=== PATIENT | female | born 1950 | race Hispanic/Latino ===

== ENCOUNTER 2017-07-30 23:13 | Emergency (ER) | payer MEDICARE, OTHER ==
[~2017-07-30] VITALS: Ht 157.5 cm; Wt 67.6 kg
[~2017-07-30 23:13] MED LIST: AMLODIPINE BESY10 MG PO; DIOVAN HCT 3201 EACH PO; HYDROCHLOROTHIA25 MG PO; LANSOPRAZOLE15 MG PO; LEVOFLOXACIN500 MG PO; LEVOTHYROXINE88 MCG PO; METHYLPREDNISOLO4 M1 PO; NORVASC10 MG; PRAVASTATIN SOD40 MG PO; PREVACID15 MG PO; SIMVASTATIN10 MG; TESSALON PERLE100 MG PO; ZITHROMAX500 MG PO
--- OUTSIDE RECORDS SUMMARY | 2017-07-30 23:15 | XMS REPORT ---
[facility] Address Unknown Phone Unavailable Care Team Providers Care Vice President Of Development Name Role Phone DEISI FRASER Unavailable Unavailable Problems This patient has no known problems. Allergies, Adverse Reactions, Alerts This patient has no known allergies or adverse reactions. Medications This patient has no known medications. Results Test Description Test Time Test Comments Text Results Atomic Results Result Comments SP LUMBAR, COMPLETE MIN 4VW [facility] [address] [address] Patient Name: DENNYS AMADOR MR #: [id number] : 1950 Age/Sex: 66/F Req #: [id number] [facility] Physician: Ordered by: EVELIO CASTILLO, DEISI Stallworth MD Report #: [id number] Location: [facility] Room/Bed: ____ Procedure: [id number] DX/SP LUMBAR, COMPLETE MIN 4VW Exam Date: Exam Time: 1630 REPORT STATUS: Signed PROCEDURE: L-SPINE COMPLETE, including bilateral obliques COMPARISON: None. INDICATIONS: LOWER BACK PAIN FINDINGS: The lumbar spine is in anatomic alignment without evidence of fracture, spondylolisthesis, or spondylolysis. Vertebral body heights are well-preserved. Mild multilevel disc space narrowing. Mild multilevel facet arthrosis. The paraspinal soft tissues are normal. Mild degenerative changes of both SI joints. CONCLUSION: Mild degenerative changes in the lumbar spine. Dictated by : Steven Krishna M.D. on 02/20/2017 at 17:03 Electronically approved by: Steven Krishna M.D. on 02/20/2017 at 17:03 Dictated By: STEVEN KRISHNA MD 02 Transcribed By: MEDARDO on 02/20/171702 COPY TO: DEISI FRASER
[2017-07-30] MEDS ORDERED: LOSARTAN POTASS25 MG (23:28)
--- NOTE | 2017-07-31 00:13 | Diagnostic Imaging Report ---
EXAMINATION: Head CT without contrast. HISTORY:Headache, high blood pressure. COMPARISON:None. TECHNIQUE: Multidetector axial images were obtained from the foramen magnum to the vertex without contrast. The images were reconstructed using brain and bone algorithms. Thin section brain images were reformatted into coronal and sagittal planes. Intravenous contrast: None IMAGE QUALITY: Acceptable. FINDINGS: Skull/scalp: No lytic or blastic. lesions. No surgical changes. Parenchyma: Nonspecific bilateral frontoparietal patchy white matter hypodensity are likely related to small vessel ischemic changes. No acute hemorrhage, mass or acute major vascular territorial infarct. Arteries: No density suggestive of thrombosis. Dural sinuses: No abnormal density suggestive of thrombosis. Ventricles: No hydrocephalus or displacement. Extra-axial spaces: No abnormal density. Brain volume: Normal for age. Craniocervical junction: No mass, Chiari malformation, or basilar invagination. Sella: Partial empty sella. Paranasal/mastoid sinuses: Imaged portions unremarkable. IMPRESSION: No acute intracranial abnormality. Mild supratentorial white matter microvascular ischemic changes. Mild generalized cerebral volume loss. Signed by: Dr. Alicia Poe M.D. on 07/31/2017 12:09 AM
[2017-07-31 00:26] LABS: BASOPHILS % 0.7 % (0.0-1.0); BILIRUBIN,URINE NEGATIVE (NEGATIVE); EOSINOPHILS # (AUTO) 0.1 (0.0-0.4); EOSINOPHILS % 1.9 % (0.0-6.0); HEMATOCRIT 35.6 % (34.2-44.1); HEMOGLOBIN 12.1 g/dL (12.0-16.0); KETONES,URINE NEGATIVE (NEGATIVE); LEUKOCYTE ESTERASE ,URINE NEGATIVE (NEGATIVE); LYMPHOCYTES # (AUTO) 2.4 (1.0-3.2); LYMPHOCYTES % 40.2 % (18.0-39.1); MEAN CORPUSCULAR HEMOGLOBIN 28.3 pg (28-32); MEAN CORPUSCULAR VOLUME 83.4 fL (81-99); MONOCYTES # (AUTO) 0.4 (0.2-0.8); MONOCYTES % 6.9 % (4.4-11.3); NITRITE,URINE NEGATIVE (NEGATIVE); PLATELET COUNT 299 x10e3/uL (140-360); PROTEIN,URINE DIPSTICK NEGATIVE (NEGATIVE); RED BLOOD COUNT 4.27 x10e6/uL (3.6-5.1); RED CELL DISTRIBUTION WIDTH 12.9 % (11.7-14.4); URINE UROBILINOGEN 0.2 mg/dL (0.2 - 1)
[2017-07-31 00:27] LABS: CLARITY,URINE CLEAR (CLEAR); COLOR,URINE YELLOW (YELLOW)
[2017-07-31 00:36] LABS: BACTERIA,URINE FEW /HPF; EPITHELIAL CELLS,URINE RARE /LPF; RBC,URINE 0-5 /HPF (0-5); WBC,URINE (MAN) 0-5 /HPF (0-5)
[2017-07-31 00:45] LABS: ALANINE AMINOTRANSFERASE 15 IU/L (0-55); ALBUMIN 4.3 g/dL (3.5-5.0); ALBUMIN/GLOBULIN RATIO 1.2 (0.8-2.0); ALKALINE PHOSPHATASE 56 IU/L (40-150); ANION GAP 15.7 mmol/L (8-16); BLOOD UREA NITROGEN 14 mg/dL (7-26); BUN/CREATININE RATIO 13 (6-25); CALCIUM 9.5 mg/dL (8.4-10.2); CARBON DIOXIDE 28 mmol/L (22-29); CHLORIDE 91 mmol/L (98-107); CREATINE KINASE 180 IU/L (29-168); CREATININE, SERUM 1.06 mg/dL (0.57-1.11); EST GLOMERULAR FILTRATION RATE 52 ML/MIN (60-); GLUCOSE 142 mg/dL (74-118); SODIUM 132 mmol/L (136-145)
--- NOTE | 2017-07-31 00:48 | Diagnostic Imaging Report ---
EXAMINATION: CHEST SINGLE (PORTABLE) INDICATION: Shortness of breath. COMPARISON: None FINDINGS: TUBES and LINES: None. LUNGS: Lungs are well inflated. Lungs are clear. There is no evidence of pneumonia or pulmonary edema. PLEURA: No pleural effusion or pneumothorax. HEART AND MEDIASTINUM: The cardiomediastinal silhouette is unremarkable. BONES AND SOFT TISSUES: No acute osseous lesion. Soft tissues are unremarkable. UPPER ABDOMEN: No free air under the diaphragm. IMPRESSION: No acute thoracic abnormality. Signed by: Dr. Grant Bryant M.D. on 07/31/2017 12:45 AM
[2017-07-31 00:51] LABS: POTASSIUM 2.7 mmol/L (3.5-5.1)
[2017-07-31] MEDS ORDERED: POTASSIUM CHLORIDE 20 MEQ TAB CR PO STA (00:51)
[2017-07-31] MEDS ORDERED: KCL 20MEQ/.9 SOD CHL 1,000 ML IV ONE (01:00)
[2017-07-31 01:16] LABS: FREE THYROXINE INDEX 2.4423 (1.4-3.8)
[2017-07-31 02:52] VITALS: BP 109/70
== END 2017-07-31 03:06 | disposition home or self-care (01) ==
LOC: ER 23:13
DX: R06.09 Other forms of dyspnea (principal); E87.6 Hypokalemia; R53.83 Other fatigue
CPT/HCPCS: 36415; 70450; 71045; 80053; 81001; 82550; 82553; 84436; 84443; 84479; 84484; 85025; 85379; 93005; 99284

== ENCOUNTER → 2018-12-03 | Day surgery (SDC) | payer MEDICARE, OTHER ==
[2018-12-02 16:24] LABS: BASOPHILS % 0.5 % (0.0-1.0); EOSINOPHILS # (AUTO) 0.1 (0.0-0.4); EOSINOPHILS % 2.6 % (0.0-6.0); HEMATOCRIT 36.6 % (34.2-44.1); HEMOGLOBIN 11.8 g/dL (12.0-16.0); LYMPHOCYTES # (AUTO) 1.4 (1.0-3.2); LYMPHOCYTES % 32.5 % (18.0-39.1); MEAN CORPUSCULAR HGB CONC 32.2 g/dL (31-35); MEAN CORPUSCULAR VOLUME 86.9 fL (81-99); MONOCYTES # (AUTO) 0.3 (0.2-0.8); NEUTROPHILS # (AUTO) 2.4 (2.1-6.9); NEUTROPHILS % 56.9 % (38.7-80.0); PLATELET COUNT 283 x10e3/uL (140-360); RED BLOOD COUNT 4.21 x10e6/uL (3.6-5.1); RED CELL DISTRIBUTION WIDTH 13.6 % (11.7-14.4)
[~2018-12-03] MED LIST changes: +FENTANYL CITRATE/PF 100MCG/2 ML INJ ONE; +HYOSCYAMINE 0.125 MG TAB ONE; +LOSARTAN POTASS25 MG; +MIDAZOLAM HCL 2 MG/2 ML VIAL ONE; +TRIAMTERENE-HCTZ1 EA PO
[2018-12-03 18:55] VITALS: BP 111/68
--- NOTE | 2018-12-04 01:21 | Operative Report ---
DATE OF PROCEDURE: 12/03/2018 SURGEON: Moose Cramer MD PROCEDURE: EGD with biopsies and esophageal dilatation and a colonoscopy with polypectomy. INDICATIONS FOR EGD: Dysphagia to solids, heartburn. INDICATIONS FOR COLONOSCOPY: Surveillance colonoscopy, personal history of colon polyps. MEDICATIONS: The patient was done under MAC, please see anesthesiologist's note. PROCEDURE IN DETAIL: With the patient in left lateral decubitus position, a flexible fiberoptic Olympus gastroscope was introduced into the esophagus under direct visualization without any difficulty. There was some patchy erythema noted in distal esophagus. The GE junction was nodular and friable and that was biopsied. The esophagus was then dilated to size 50-[place] Ch[place]olm. The scope was then advanced with ease into the stomach. Mucosa overlying the antrum and the body revealed some patchy erythema and [id number] edema. Biopsies were obtained, sent to stain for H. pylori. Several hyperplastic-appearing polyps were noted in the body of the stomach, some were partially excised with cold biopsy forceps. Pylorus appeared to be of normal contour and shape, was intubated with ease and the scope was advanced all the way to the second portion of the duodenum. The scope was then withdrawn slowly and mucosa overlying in the second portion as well as the duodenal bulb and repeat biopsies were obtained from the second portion and duodenal bulb. The scope was then withdrawn back into the stomach and retroflexed mucosa overlying the fundus and cardia appeared to be within normal limits. The scope was then straightened out, it was subsequently withdrawn, patient tolerated procedure well. IMPRESSION: 1. Distal esophagitis. 2. GE junction nodular, friable, biopsied, dilated to size 50-[place] Ch[place]m. 3. Gastritis, biopsied, biopsies sent to stain for H. pylori. 4. Gastric polyps, body, some partially excised with cold biopsy forceps. 5. Rule out sprue. PLAN: Follow up histology. Initiate Dexilant 60 mg one p.o. q.a.m. a.c. as well as Carafate 1 g p.o. a.c. t.i.d. at bedtime. The patient was then turned around after adequate lubrication of the anal canal, flexible fiberoptic Olympus colonoscope was inserted into the rectum with ease and advanced all the way to the cecum. It was then withdrawn slowly, mucosa overlying the cecum and ascending colon appeared to be within normal limits. One polyp was removed per cold snare from the transverse colon, the rest of the transverse appeared to be within normal limits. Some diverticular disease was noted to involve the distal descending and the sigmoid colon. Three polyps were snared. Two polyps were hot biopsied from the rectum. The scope was then retroflexed into the distal rectum. Small internal hemorrhoids were noted none of which was actively bleeding. The scope was then straightened out, it was subsequently withdrawn. Patient tolerated procedure well. IMPRESSION: 1. Transverse colon polyp snared. 2. Diverticulosis. 3. Rectal polyps x5, three snared and two hot biopsied. 4. Internal hemorrhoids, none actively bleeding. PLAN: 1. Followup histology. Initiate high-fiber, low-fat diet. Initiate high-fiber supplement. The patient might benefit from a followup colonoscopy in 5 years. MD JL Rowe/ABBY /[id number] cc: Gerhard Manning
== END | disposition home or self-care (01) ==
LOC: OR 12:15
PROVIDERS: ATTEND Internal Medicine Gastroenterology
DX: K29.70 Gastritis, unspecified, without bleeding (principal); D12.3 Benign neoplasm of transverse colon; K62.1 Rectal polyp; K31.7 Polyp of stomach and duodenum; K29.80 Duodenitis without bleeding; K22.8 Other specified diseases of esophagus; K20.9 Esophagitis, unspecified; K59.00 Constipation, unspecified; K57.30 Diverticulosis of large intestine without perforation or abscess without bleeding; K64.8 Other hemorrhoids; I10 Essential (primary) hypertension; E03.9 Hypothyroidism, unspecified; E78.00 Pure hypercholesterolemia, unspecified; Z91.041 Radiographic dye allergy status; Z01.810 Encounter for preprocedural cardiovascular examination; Z01.812 Encounter for preprocedural laboratory examination; Z68.27 Body mass index [BMI] 27.0-27.9, adult; Z80.0 Family history of malignant neoplasm of digestive organs
CPT/HCPCS: 36415; 43239; 43450; 45384; 45385; 85025; 88305; 88312; 93005; J2250; 45380; J3010

== ENCOUNTER → 2019-03-04 | Outpatient (CLI) | payer MEDICARE, OTHER ==
[~2019-03-04] MED LIST changes: -FENTANYL CITRATE/PF 100MCG/2 ML INJ ONE; -HYOSCYAMINE 0.125 MG TAB ONE; -MIDAZOLAM HCL 2 MG/2 ML VIAL ONE
--- NOTE | 2019-03-05 10:28 | Diagnostic Imaging Report ---
History: Low back pain with sciatica, left leg pain Comparison studies: None Technique: Sagittal and axial T2 , sagittal T1 and IR, axial spin density oblique, coronal T2. Intravenous contrast: None Findings: Number of lumbar vertebral bodies: 5. Alignment: Convex left lumbar curvature centered at L2-L3. Minimal grade 1 retrolisthesis of L3 on L4. Soft tissues: No T2 hyperintense inflammatory changes. Paraspinal muscles: Mild symmetric fatty-replaced atrophy. Lower thoracic cord: Normal in signal and morphology. Tip of the conus terminates at the superior T1 level. Cauda equina: Focal crowding of the cauda equina nerve roots at L3-L4 due to severe degenerative canal stenosis as described below. Vertebrae: No compression fractures, infection or neoplasm. Degenerative changes: L1-L2: Mildly degenerated disc with small right central disc protrusion without canal stenosis or foraminal stenosis. L2-L3: Mildly degenerated disc with small annular fissure. Patent canal and foramina. L3-L4: Mildly degenerated disc. Disc bulge with superimposed slightly inferior migrated 13 mm x 10 mm x 13 mm (SI x AP x TV) central disc extrusion, mildly thickened ligamentum flavum result in severe canal stenosis, narrowing of the subarticular recesses with impingement on the L4 subarticular nerve roots. Patent foramina. L4-L5: Mildly degenerated disc symmetric disc bulge, thickened ligamentum flavum and mild facet arthrosis without significant canal or foraminal stenosis. L5-S1: Mildly degenerated disc with small annular fissure.. Symmetric disc bulge, thickened ligamentum flavum and mild facet arthrosis without canal or foraminal stenosis. Additional findings: Multiple bilateral renal cysts with additional subcentimeter T2 hyperintense renal lesions which may be cysts but are otherwise too small to characterize. Largest cyst in the superior pole the left kidney measures 2.0 cm. Largest cyst in the right kidney measures 1.4 cm in the interpolar region. IMPRESSION: 1. Severe canal stenosis and impingement on the L4 subarticular nerve roots at L3-L4 due to a disc bulge and large central disc extrusion extrusion. 2. Additional mild multilevel degenerative changes as described. Signed by: Dr. Sanford Soto M.D. on 03/05/2019 10:24 AM
== END ==
LOC: MRI 13:46
PROVIDERS: ATTEND Family Medicine
DX: M54.42 Lumbago with sciatica, left side (principal)
CPT/HCPCS: 72148

== ENCOUNTER 2019-04-12 16:34 | Emergency (ER) | payer MEDICARE, OTHER ==
[~2019-04-12] VITALS: Ht 157.5 cm; Wt 67.6 kg
[2019-04-12 17:41] LABS: BASOPHILS % 0.5 % (0.0-1.0); EOSINOPHILS # (AUTO) 0.1 (0.0-0.4); EOSINOPHILS % 1.9 % (0.0-6.0); HEMATOCRIT 33.9 % (34.2-44.1); HEMOGLOBIN 11.1 g/dL (12.0-16.0); LYMPHOCYTES # (AUTO) 1.3 (1.0-3.2); MEAN CORPUSCULAR HEMOGLOBIN 28.1 pg (28-32); MEAN CORPUSCULAR HGB CONC 32.7 g/dL (31-35); MEAN CORPUSCULAR VOLUME 85.8 fL (81-99); MONOCYTES # (AUTO) 0.4 (0.2-0.8); NEUTROPHILS % 68.3 % (38.7-80.0); PLATELET COUNT 265 x10e3/uL (140-360); RED BLOOD COUNT 3.95 x10e6/uL (3.6-5.1); RED CELL DISTRIBUTION WIDTH 14.1 % (11.7-14.4)
[2019-04-12 17:50] LABS: INR 0.98; PROTHROMBIN TIME 13.5 seconds (11.9-14.5)
[2019-04-12 17:51] LABS: PARTIAL THROMBOPLASTIN TIME 31.6 seconds (23.8-35.5)
[2019-04-12 17:58] LABS: ALANINE AMINOTRANSFERASE 89 IU/L (0-55); ALBUMIN 4.1 g/dL (3.5-5.0); ALBUMIN/GLOBULIN RATIO 1.3 (0.8-2.0); ALKALINE PHOSPHATASE 62 IU/L (40-150); ANION GAP 12.8 mmol/L (8-16); BLOOD UREA NITROGEN 10 mg/dL (7-26); BUN/CREATININE RATIO 11 (6-25); CALCIUM 9.4 mg/dL (8.4-10.2); CARBON DIOXIDE 24 mmol/L (22-29); CHLORIDE 104 mmol/L (98-107); CREATINE KINASE 123 IU/L (29-168); EST GLOMERULAR FILTRATION RATE > 60 ML/MIN (60-); GLUCOSE 94 mg/dL (74-118); POTASSIUM 3.8 mmol/L (3.5-5.1); SODIUM 137 mmol/L (136-145)
--- NOTE | 2019-04-12 18:08 | Diagnostic Imaging Report ---
Chest, portable AP view History: Dizziness Comparison: No comparisons available for review IMPRESSION: The cardiomediastinal silhouette and pulmonary vasculature are within normal limits. The lungs are clear without evidence of consolidation or effusion. There are no acute osseous abnormalities. Signed by: Neftaly King MD on 04/12/2019 6:05 PM
[2019-04-12 18:29] LABS: BILIRUBIN,URINE NEGATIVE (NEGATIVE); CLARITY,URINE CLEAR (CLEAR); COLOR,URINE YELLOW (YELLOW); KETONES,URINE NEGATIVE (NEGATIVE); LEUKOCYTE ESTERASE ,URINE TRACE (NEGATIVE); NITRITE,URINE NEGATIVE (NEGATIVE); PROTEIN,URINE DIPSTICK NEGATIVE (NEGATIVE); URINE UROBILINOGEN 0.2 mg/dL (0.2 - 1)
[2019-04-12 18:41] LABS: BACTERIA,URINE FEW /HPF; EPITHELIAL CELLS,URINE MODERATE /LPF; RBC,URINE 0-5 /HPF (0-5); RENAL EPITHELIAL CELLS,URINE FEW
== END 2019-04-12 18:53 | disposition home or self-care (01) ==
LOC: ER 16:34
DX: R42 Dizziness and giddiness (principal); I10 Essential (primary) hypertension; E03.9 Hypothyroidism, unspecified; E78.00 Pure hypercholesterolemia, unspecified
CPT/HCPCS: 36415; 71045; 80053; 81001; 82550; 82553; 84484; 85025; 85610; 85730; 93005; 99284

== ENCOUNTER 2020-08-17 06:19 | Observation (INO) | payer MEDICARE, OTHER ==
[~2020-08-17] VITALS: Ht 157.5 cm; Wt 67.6 kg
[2020-08-17] VITALS (7 sets, daily range): BP systolic 121–143; BP diastolic 60–72
[2020-08-17] MEDS ORDERED: SODIUM CHLORIDE 0.9% 1000ML 1,000 ML IV STA (06:25)
[2020-08-17] MEDS ORDERED: ASPIRIN 81 MG CHEW TAB PO ONE (06:30)
[2020-08-17 06:38] LABS: BASOPHILS % 0.5 % (0.0-1.0); EOSINOPHILS # (AUTO) 0.2 (0.0-0.4); EOSINOPHILS % 2.5 % (0.0-6.0); HEMATOCRIT 35.9 % (34.2-44.1); HEMOGLOBIN 11.8 g/dL (12.0-16.0); LYMPHOCYTES # (AUTO) 2.9 (1.0-3.2); LYMPHOCYTES % 45.9 % (18.0-39.1); MEAN CORPUSCULAR HEMOGLOBIN 27.7 pg (28-32); MEAN CORPUSCULAR HGB CONC 32.9 g/dL (31-35); MEAN CORPUSCULAR VOLUME 84.3 fL (81-99); MONOCYTES # (AUTO) 0.5 (0.2-0.8); MONOCYTES % 8.5 % (4.4-11.3); NEUTROPHILS # (AUTO) 2.7 (2.1-6.9); NEUTROPHILS % 42.3 % (38.7-80.0); PLATELET COUNT 251 x10e3/uL (140-360); RED BLOOD COUNT 4.26 x10e6/uL (3.6-5.1); RED CELL DISTRIBUTION WIDTH 14.1 % (11.7-14.4)
[2020-08-17 07:25] LABS: ALBUMIN 4.1 g/dL (3.5-5.0); ALBUMIN/GLOBULIN RATIO 1.3 (0.8-2.0); CALCIUM 8.8 mg/dL (8.4-10.2); CREATININE, SERUM 0.92 mg/dL (0.57-1.11)
[2020-08-17 07:31] LABS: CREATINE KINASE MB 0.8 ng/mL (0-5.0)
[2020-08-17] MEDS ORDERED: ONDANSETRON HCL INJ 2MG/ML 2ML 2 MG/ML VIAL IV PRN (07:45)
[2020-08-17] MEDS ORDERED: MORPHINE SULFATE INJ 4 MG/ML INJ 1ML IV PRN (07:45)
[2020-08-17] MEDS ORDERED: POTASSIUM CHLORIDE 20 MEQ TAB CR PO ONE (14:15)
[2020-08-17] MEDS: METOPROLOL SUCCINATE 50 MG TAB XL PO SCH ×2 (14:31→21:08)
[2020-08-17 15:12] LABS: CREATINE KINASE MB 0.8 ng/mL (0-5.0)
[2020-08-17] MEDS ORDERED: ENOXAPARIN 30 MG/0.3 ML SYR SC SCH (17:00)
[2020-08-17] MEDS ORDERED: ACETAMINOPHEN 325 MG TAB PO PRN (18:15)
[2020-08-17] MEDS ORDERED: PRAVASTATIN 20 MG TAB PO SCH (21:00)
[2020-08-17 23:22] LABS: CREATINE KINASE MB 0.7 ng/mL (0-5.0)
[2020-08-18] VITALS: BP 158/67
[2020-08-18 04:00] VITALS: BP 144/62
[2020-08-18 05:37] LABS: BASOPHILS % 0.5 % (0.0-1.0); EOSINOPHILS # (AUTO) 0.2 (0.0-0.4); EOSINOPHILS % 3.3 % (0.0-6.0); HEMOGLOBIN 11.2 g/dL (12.0-16.0); LYMPHOCYTES # (AUTO) 1.8 (1.0-3.2); LYMPHOCYTES % 33.7 % (18.0-39.1); MEAN CORPUSCULAR HEMOGLOBIN 27.1 pg (28-32); MEAN CORPUSCULAR HGB CONC 31.1 g/dL (31-35); MONOCYTES # (AUTO) 0.6 (0.2-0.8); MONOCYTES % 10.6 % (4.4-11.3); NEUTROPHILS # (AUTO) 2.8 (2.1-6.9); NEUTROPHILS % 51.4 % (38.7-80.0); PLATELET COUNT 271 x10e3/uL (140-360); RED BLOOD COUNT 4.14 x10e6/uL (3.6-5.1); RED CELL DISTRIBUTION WIDTH 14.6 % (11.7-14.4)
[2020-08-18 05:56] LABS: ALBUMIN 3.7 g/dL (3.5-5.0); ALBUMIN/GLOBULIN RATIO 1.4 (0.8-2.0); ANION GAP 12.9 mmol/L (8-16); CALCIUM 8.8 mg/dL (8.4-10.2); CREATININE, SERUM 0.97 mg/dL (0.57-1.11); POTASSIUM 4.9 mmol/L (3.5-5.1)
[2020-08-18 05:58] LABS: CHOL/HDL RATIO 3.1 (3.0-3.6)
[2020-08-18] MEDS ORDERED: LEVOTHYROXINE SODIUM 50 MCG TAB PO SCH (06:00)
[2020-08-18 06:13] LABS: THYROID STIMULATING HORMONE 0.442 uIU/mL (0.350-4.940)
[2020-08-18 07:45] VITALS: BP 140/67
[2020-08-18 07:50] VITALS: BP 140/67
[2020-08-18] MEDS: METOPROLOL SUCCINATE 50 MG TAB XL PO SCH ×2 (08:21→13:53)
[2020-08-18] MEDS ORDERED: KCL 20 MEQ PACKET/ ORAL SOLN PO SCH (09:00)
[2020-08-18 12:01] VITALS: BP 155/69
[2020-08-18] MEDS ORDERED: TOPROL XL50 MG PO (13:52)
== END 2020-08-18 15:00 | disposition home or self-care (01) ==
LOC: ER 06:31 → ERHOLD 08:15 → MED/SURG2 08:51
PROVIDERS: ADMIT Internal Medicine; ATTEND Internal Medicine
DX: R00.2 Palpitations (principal); I10 Essential (primary) hypertension; E03.9 Hypothyroidism, unspecified; F41.9 Anxiety disorder, unspecified; I25.10 Atherosclerotic heart disease of native coronary artery without angina pectoris; E87.6 Hypokalemia; E86.0 Dehydration; Z20.822 Contact with and (suspected) exposure to COVID-19
CPT/HCPCS: 36415 ×2; 71045; 80053 ×2; 80061; 82270; 82550; 82553; 83880; 84443; 84484; 85025 ×2; 93005; 93306; 99284; G0378 ×2; J2405; J7030; U0002; J2270

== ENCOUNTER 2021-02-25 06:27 | Emergency (ER) | payer MEDICARE, OTHER ==
[~2021-02-25] VITALS: Ht 157.5 cm; Wt 71.2 kg
[~2021-02-25 06:27] MED LIST changes: +TOPROL XL50 MG PO
[2021-02-25] MEDS ORDERED: SODIUM CHLORIDE 0.9% 1000ML 1,000 ML IV STA (07:00)
[2021-02-25 07:30] LABS: BASOPHILS % 0.4 % (0.0-1.0); EOSINOPHILS # (AUTO) 0.1 (0.0-0.4); EOSINOPHILS % 1.3 % (0.0-6.0); HEMATOCRIT 35.3 % (34.2-44.1); HEMOGLOBIN 11.5 g/dL (12.0-16.0); LYMPHOCYTES # (AUTO) 2.1 (1.0-3.2); LYMPHOCYTES % 30.5 % (18.0-39.1); MEAN CORPUSCULAR HEMOGLOBIN 27.4 pg (28-32); MEAN CORPUSCULAR HGB CONC 32.6 g/dL (31-35); MEAN CORPUSCULAR VOLUME 84.2 fL (81-99); MONOCYTES # (AUTO) 0.5 (0.2-0.8); MONOCYTES % 7.7 % (4.4-11.3); NEUTROPHILS # (AUTO) 4.1 (2.1-6.9); NEUTROPHILS % 59.8 % (38.7-80.0); PLATELET COUNT 243 x10e3/uL (140-360); RED BLOOD COUNT 4.19 x10e6/uL (3.6-5.1); RED CELL DISTRIBUTION WIDTH 13.2 % (11.7-14.4)
[2021-02-25 07:49] LABS: INR 0.98; PARTIAL THROMBOPLASTIN TIME 33.4 seconds (23.8-35.5); PROTHROMBIN TIME 13.2 seconds (11.9-14.5)
[2021-02-25 07:56] LABS: ALBUMIN 4.2 g/dL (3.5-5.0); ALBUMIN/GLOBULIN RATIO 1.2 (0.8-2.0); ANION GAP 13.8 mmol/L (8-16); CALCIUM 9.4 mg/dL (8.4-10.2); CREATININE, SERUM 0.78 mg/dL (0.57-1.11); POTASSIUM 3.8 mmol/L (3.5-5.1)
[2021-02-25 08:02] LABS: CREATINE KINASE MB 2.6 ng/mL (0-5.0)
[2021-02-25] MEDS ORDERED: ONDANSETRON HCL INJ 2MG/ML 2ML 2 MG/ML VIAL IV STA (08:24)
[2021-02-25 09:45] VITALS: BP 145/60
== END 2021-02-25 09:50 | disposition home or self-care (01) ==
LOC: ER 06:50
DX: R07.89 Other chest pain (principal); J40 Bronchitis, not specified as acute or chronic; R05.9 Cough, unspecified; R42 Dizziness and giddiness; R53.1 Weakness; I10 Essential (primary) hypertension; E78.5 Hyperlipidemia, unspecified; E03.9 Hypothyroidism, unspecified; E78.00 Pure hypercholesterolemia, unspecified; Z20.822 Contact with and (suspected) exposure to COVID-19
CPT/HCPCS: 36415; 71045; 80053; 82550; 82553; 83735; 83880; 84484; 85025; 85379; 85610; 85730; 93005; 99284; J2405; J7030; U0002

== ENCOUNTER 2021-05-20 22:15 | Emergency (ER) | payer MEDICARE, OTHER ==
[~2021-05-20] VITALS: Ht 157.5 cm; Wt 71.2 kg
[2021-05-21 00:03] VITALS: BP 160/69
== END 2021-05-21 00:03 | disposition home or self-care (01) ==
LOC: FSED 22:31
DX: I10 Essential (primary) hypertension (principal); R53.1 Weakness; M25.511 Pain in right shoulder; E03.9 Hypothyroidism, unspecified; E78.5 Hyperlipidemia, unspecified; E78.00 Pure hypercholesterolemia, unspecified; Z91.041 Radiographic dye allergy status; Z79.899 Other long term (current) drug therapy
CPT/HCPCS: 80048; 80053; 82553; 83880; 84484; 85025; 93005; 99283

== ENCOUNTER 2021-05-22 23:06 | Emergency (ER) | payer MEDICARE, OTHER ==
[~2021-05-22] VITALS: Ht 157.5 cm; Wt 72.1 kg
[2021-05-22] MEDS ORDERED: FAMOTIDINE 20 MG/2 ML VIAL IV STA (23:17)
[2021-05-22] MEDS ORDERED: ACETAMINOPHEN 325 MG TAB PO ONE (23:30)
[2021-05-22] MEDS ORDERED: DONNATAL/LIDOCAINE/MAALOX 30 ML SUSP PO ONE (23:30)
[2021-05-22] MEDS ORDERED: BELLADONNA ALK/PHENOBARBITAL 5 ML UDC ONE (23:48)
[2021-05-22] MEDS ORDERED: ACETAMINOPHEN 325 MG TAB ONE (23:48)
[2021-05-22] MEDS ORDERED: MAGNESIUM/ALUMINUM/SIMETHICONE 30 ML UDC ONE (23:49)
[2021-05-22] MEDS ORDERED: LIDOCAINE VISC 2% SOLN 15 ML UDC ONE (23:50)
[2021-05-22] MEDS ORDERED: FAMOTIDINE 20 MG/2 ML VIAL IV ONE (23:50)
[2021-05-23] MEDS ORDERED: DICYCLOMINE HCL20 MG PO (00:26)
[2021-05-23] MEDS ORDERED: CEPHALEXIN500 MG PO (00:32)
[2021-05-23 01:06] VITALS: BP 155/71
== END 2021-05-23 01:06 | disposition home or self-care (01) ==
LOC: FSED 23:11
DX: R10.33 Periumbilical pain (principal); R11.0 Nausea; I10 Essential (primary) hypertension; E78.5 Hyperlipidemia, unspecified; E03.9 Hypothyroidism, unspecified; E78.00 Pure hypercholesterolemia, unspecified
CPT/HCPCS: 74176; 80053; 81003; 84484; 85025; 93005; 96374; 99284

== ENCOUNTER 2021-12-14 03:59 | Observation (INO) | payer MEDICARE, OTHER ==
[~2021-12-14] VITALS: Ht 157.5 cm; Wt 72.1 kg
[~2021-12-14 03:59] MED LIST changes: +CEPHALEXIN500 MG PO; +DICYCLOMINE HCL20 MG PO
[2021-12-14 04:15] LABS: BASOPHILS % 0.4 % (0.0-1.0); EOSINOPHILS # (AUTO) 0.2 (0.0-0.4); EOSINOPHILS % 2.6 % (0.0-6.0); HEMATOCRIT 38.1 % (34.2-44.1); HEMOGLOBIN 12.5 g/dL (12.0-16.0); LYMPHOCYTES # (AUTO) 3.3 (1.0-3.2); LYMPHOCYTES % 43.3 % (18.0-39.1); MEAN CORPUSCULAR HGB CONC 32.8 g/dL (31-35); MEAN CORPUSCULAR VOLUME 85.4 fL (81-99); MONOCYTES # (AUTO) 0.7 (0.2-0.8); MONOCYTES % 9.8 % (4.4-11.3); NEUTROPHILS # (AUTO) 3.3 (2.1-6.9); NEUTROPHILS % 43.5 % (38.7-80.0); PLATELET COUNT 239 x10e3/uL (140-360); RED BLOOD COUNT 4.46 x10e6/uL (3.6-5.1); RED CELL DISTRIBUTION WIDTH 13.2 % (11.7-14.4)
[2021-12-14 04:32] LABS: ALANINE AMINOTRANSFERASE 25 IU/L (0-55); ALBUMIN 3.9 g/dL (3.5-5.0); ALKALINE PHOSPHATASE 82 IU/L (40-150); ANION GAP 16.2 mmol/L (8-16); BLOOD UREA NITROGEN 9 mg/dL (7-26); BUN/CREATININE RATIO 10 (6-25); CALCIUM 8.8 mg/dL (8.4-10.2); CARBON DIOXIDE 23 mmol/L (22-29); CHLORIDE 96 mmol/L (98-107); CREATINE KINASE 94 IU/L (29-168); CREATININE, SERUM 0.91 mg/dL (0.57-1.11); GLUCOSE 95 mg/dL (74-118); POTASSIUM 3.2 mmol/L (3.5-5.1); SODIUM 132 mmol/L (136-145)
[2021-12-14] MEDS ORDERED: POTASSIUM CHLORIDE 20 MEQ TAB CR PO STA (05:03)
[2021-12-14] MEDS ORDERED: ASPIRIN 325 MG TAB PO ONE (05:15)
[2021-12-14] MEDS ORDERED: ONDANSETRON HCL INJ 2MG/ML 2ML 2 MG/ML VIAL IV PRN (06:00)
[2021-12-14] MEDS ORDERED: NITROGLYCERIN 0.4 MG SUBL SL PRN (06:00)
[2021-12-14] MEDS ORDERED: Morphine 2mg Syringe 2 MG/ML SYR IV PRN (06:00)
[2021-12-14] MEDS: FAMOTIDINE 20 MG/2 ML VIAL IV SCH ×2 (08:03→18:28)
[2021-12-14] MEDS ORDERED: ASPIRIN 81 MG ENTERIC COATED PO SCH (09:00)
[2021-12-14 11:42] LABS: CREATINE KINASE 82 IU/L (29-168)
[2021-12-14 11:46] VITALS: BP 128/65
[2021-12-14 12:04] VITALS: BP 128/74
[2021-12-14] MEDS ORDERED: XARELTO20 MG PO (13:10)
[2021-12-14] MEDS ORDERED: DICYCLOMINE HCL 20 MG TAB PO PRN (13:15)
[2021-12-14] MEDS ORDERED: PAXLOVID CO-PA1 EACH PO (14:32)
[2021-12-14] MEDS ORDERED: METOPROLOL SUCCINATE 50 MG TAB XL PO SCH (15:00)
[2021-12-14 15:53] VITALS: BP 128/65
[2021-12-14 17:55] LABS: CREATINE KINASE 80 IU/L (29-168)
[2021-12-14] MEDS ORDERED: PRAVASTATIN 20 MG TAB PO SCH (21:00)
[2021-12-15] MEDS ORDERED: LEVOTHYROXINE SODIUM 50 MCG TAB PO SCH (06:00)
[2021-12-15] MEDS ORDERED: TRIAMTERENE/HCTZ 37.5-25 MG TAB PO SCH (09:00)
== END 2021-12-14 19:10 | disposition home or self-care (01) ==
LOC: ER 04:05 → ERHOLD 06:06 → MED/SURG2 11:58
PROVIDERS: ADMIT Internal Medicine; ATTEND Internal Medicine
DX: U07.1 COVID-19 (principal); J12.82 Pneumonia due to coronavirus disease 2019; Z91.041 Radiographic dye allergy status; R07.89 Other chest pain; E87.1 Hypo-osmolality and hyponatremia; E87.6 Hypokalemia; R94.31 Abnormal electrocardiogram [ECG] [EKG]; E03.9 Hypothyroidism, unspecified
CPT/HCPCS: 0223U; 36415; 71045; 80053; 82550; 82553; 83690; 84484; 85025; 93005; 94799; 99284; G0378

== ENCOUNTER → 2022-01-02 | Day surgery (SDC) | payer MEDICARE, OTHER ==
[~2022-01-02] MED LIST changes: +ATORVASTATIN CA10 MG PO; +CLONIDINE HCL0.1 MG PO; +FENTANYL CITRATE/PF 100MCG/2 ML INJ ONE; +HYOSCYAMINE SULFATE 0.5 MG/ML INJ ONE; +K-DUR10 MEQ PO; +LANSOPRAZOLE30 MG; +LIDOCAINE HCL 2% LOCAL INJ 5 ML SDV VIAL INJ ONE; +MIDAZOLAM HCL 2 MG/2 ML VIAL ONE; +PAXLOVID CO-PA1 EACH PO; +POTASSIUM CHLO20 ME1 PO; +PRAZOSIN HCL5 MG; +PROPOFOL IV EMULSION 10 MG/ML 20 ML VIAL ONE; +SUCRALFATE1 GM PO; +XARELTO20 MG PO
[2022-01-02 09:10] VITALS: BP 113/64
== END | disposition home or self-care (01) ==
LOC: OR 06:07
PROVIDERS: ATTEND Internal Medicine Gastroenterology
DX: K29.50 Unspecified chronic gastritis without bleeding (principal); K63.5 Polyp of colon; K62.1 Rectal polyp; K31.7 Polyp of stomach and duodenum; K52.9 Noninfective gastroenteritis and colitis, unspecified; K21.9 Gastro-esophageal reflux disease without esophagitis; K27.9 Peptic ulcer, site unspecified, unspecified as acute or chronic, without hemorrhage or perforation; K20.90 Esophagitis, unspecified without bleeding; B96.81 Helicobacter pylori [H. pylori] as the cause of diseases classified elsewhere; K57.30 Diverticulosis of large intestine without perforation or abscess without bleeding; K64.8 Other hemorrhoids; I25.10 Atherosclerotic heart disease of native coronary artery without angina pectoris; E78.5 Hyperlipidemia, unspecified; I10 Essential (primary) hypertension; E03.9 Hypothyroidism, unspecified; E78.00 Pure hypercholesterolemia, unspecified; Z91.041 Radiographic dye allergy status; Z79.899 Other long term (current) drug therapy; Z68.28 Body mass index [BMI] 28.0-28.9, adult; Z86.16 Personal history of COVID-19; Z80.0 Family history of malignant neoplasm of digestive organs
CPT/HCPCS: 43239; 43450; 45380; 88305; 88342; C9113; J1980; J2001; J2250; J2704; J3010; 45378; 88312

== ENCOUNTER → 2022-07-22 | Outpatient (CLI) | payer MEDICARE, OTHER ==
[~2022-07-22] MED LIST changes: -FENTANYL CITRATE/PF 100MCG/2 ML INJ ONE; -HYOSCYAMINE SULFATE 0.5 MG/ML INJ ONE; -LIDOCAINE HCL 2% LOCAL INJ 5 ML SDV VIAL INJ ONE; -MIDAZOLAM HCL 2 MG/2 ML VIAL ONE; -PROPOFOL IV EMULSION 10 MG/ML 20 ML VIAL ONE
== END ==
LOC: RAD 13:48
PROVIDERS: ATTEND Family Medicine
DX: R13.10 Dysphagia, unspecified (principal)
CPT/HCPCS: 71046

== ENCOUNTER → 2022-07-28 | Outpatient (CLI) | payer MEDICARE, OTHER | LOC: DX 11:31 | PROVIDERS: ATTEND Family Medicine | DX: R13.10 Dysphagia, unspecified (principal) | CPT/HCPCS: 74220 ==

== ENCOUNTER → 2024-12-02 | Day surgery (SDC) | payer MEDICARE, OTHER ==
[2024-11-30 16:22] LABS: BASOPHILS % 0.4 % (0.0-1.0); EOSINOPHILS % 2.3 % (0.0-6.0); LYMPHOCYTES % 29.8 % (18.0-39.1); MONOCYTES % 9.8 % (4.4-11.3); NEUTROPHILS % 57.3 % (38.7-80.0); RED CELL DISTRIBUTION WIDTH 14.0 % (11.7-14.4)
[~2024-12-02] MED LIST changes: +PANTOPRAZOLE SO40 MG PO; +PROPOFOL IV EMULSION 50 ML IV ONE; +ZETIA10 MG PO
[2024-12-02] MEDS: LACTATED RINGER'S 1,000 ML ONE (10:28)
[2024-12-02 13:10] VITALS: BP 156/88; PULSE 76; RESP 18; O2SAT 97
== END | disposition home or self-care (01) ==
LOC: OR 10:02
PROVIDERS: ATTEND Internal Medicine Gastroenterology
DX: Z09 Encounter for follow-up examination after completed treatment for conditions other than malignant neoplasm (principal); K63.5 Polyp of colon; Z80.0 Family history of malignant neoplasm of digestive organs; K57.30 Diverticulosis of large intestine without perforation or abscess without bleeding; K64.8 Other hemorrhoids; K22.2 Esophageal obstruction; K21.00 Gastro-esophageal reflux disease with esophagitis, without bleeding; K31.7 Polyp of stomach and duodenum; K29.50 Unspecified chronic gastritis without bleeding; K59.00 Constipation, unspecified; I10 Essential (primary) hypertension; I25.10 Atherosclerotic heart disease of native coronary artery without angina pectoris; E03.9 Hypothyroidism, unspecified; R00.1 Bradycardia, unspecified; Z87.440 Personal history of urinary (tract) infections; Z01.812 Encounter for preprocedural laboratory examination; Z01.810 Encounter for preprocedural cardiovascular examination; Z79.899 Other long term (current) drug therapy
CPT/HCPCS: 36415; 43239; 43251; 43450; 45385; 85025; 88305; 93005; J2470; J2704; J7121; 45378

== ENCOUNTER 2025-01-10 02:11 | Emergency (ER) | payer MEDICARE, OTHER ==
[~2025-01-10] VITALS: Ht 157.5 cm; Wt 69.9 kg
[~2025-01-10 02:11] MED LIST changes: -PANTOPRAZOLE SO40 MG PO; -PROPOFOL IV EMULSION 50 ML IV ONE
[2025-01-10 02:28] VITALS: TEMP 98.1
[2025-01-10 02:37] LABS: BASOPHILS % 0.4 % (0.0-1.0); EOSINOPHILS % 4.7 % (0.0-6.0); LYMPHOCYTES % 36.1 % (18.0-39.1); MONOCYTES % 11.9 % (4.4-11.3); NEUTROPHILS % 46.6 % (38.7-80.0); RED CELL DISTRIBUTION WIDTH 13.8 % (11.7-14.4)
[2025-01-10 02:50] LABS: EST GLOMERULAR FILTRATION RATE 79.0 ML/MIN (>=60)
[2025-01-10] MEDS ORDERED: PANTOPRAZOLE SO40 MG PO (03:28)
[2025-01-10 03:42] VITALS: PULSE 71; RESP 16; O2SAT 100
== END 2025-01-10 03:45 | disposition home or self-care (01) ==
LOC: ER 02:25
DX: R12 Heartburn (principal); I10 Essential (primary) hypertension; E78.5 Hyperlipidemia, unspecified; K21.9 Gastro-esophageal reflux disease without esophagitis; E78.00 Pure hypercholesterolemia, unspecified
CPT/HCPCS: 36415; 71045; 80053; 83690; 84484; 85025; 93005; 99284; J2470